=== PATIENT | female | born 1975 | race Caucasian/White ===

== ENCOUNTER 2023-08-14 20:20 | Emergency (ER) | payer OTHER, SELFPAY ==
[2023-08-14 20:22] VITALS: BP 169/92
--- NOTE | 2023-08-14 20:56 | ED.GENMED ---
History of Present Illness
<Liset Cardenas PA-C - Last Filed: 08/15/23 00:08>
General
Chief Complaint: Skin Surface Trauma
Source: patient
Exam Limitations: none
Time Seen by Provider: 08/14/23 20:48
Nursing documentation reviewed up to this point in time: agreed with
Travel History
Have you had any contact with someone who has COVID-19?: No
Do you have any symptoms of coronavirus? Fever > 100 degrees, chills, cough, shortness of breath, sore throat, loss of taste or smell, muscle aches, or headache?: No
History of Present Illness
History of Present Illness:
Patient is a 48-year-old female presenting for evaluation of right index finger laceration. 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
right index finger. She denies any numbness or tingling of right index finger. She did clean wound with soap and water immediately following laceration. They attempted to stop bleeding with direct compression but bleeding persisted. She came
down to the emergency department for further evaluation.
Patient is not on any blood thinners. Patient had tetanus booster in 2019.
Phy Exam
<Liset Cardenas PA-C - Last Filed: 08/15/23 00:08>
Physical Exam
Physical Exam:
Vitals: Patient's vital signs are stable
General: Patient is well appearing, no acute distress
Skin: Approximately 1 cm V-shaped laceration on tuft of right second digit; no evidence of tendon involvement. Full flexion and extension against resistance at the DIP, PIP, MCP joints; no sensory deficit; right upper extremity neurovascularly
intact
Head: Normocephalic, atraumatic
Eyes: Sclera nonicteric. EOMs intact. No nystagmus.
Throat: Protecting airway
Neck: Normal ROM, no cervical spine tenderness, no meningismus
Cardiac: Regular rate and rhythm, no murmurs.
Pulm: Normal respiratory effort, no wheezes, rales, rhonchi heard on exam.
Abdomen: No abdominal tenderness.
Extremities: 1 cm laceration of right second digit as described above. no evidence of cyanosis or edema
Neuro: AAOx3. CN II-XII intact. No focal neurologic deficits.
Psychiatric: Normal affect.
Course
<Liset Cardenas PA-C - Last Filed: 08/15/23 00:08>
Vital Signs
Initial and Last Documented VS:
Initial Vital Signs
Temp Pulse Resp BP Pulse Ox
98.6 F 93 16 169/92 99
08/14/23 20:22 08/14/23 20:22 08/14/23 20:22 08/14/23 20:22 08/14/23 20:22
Last Documented Vital Signs
Temp Pulse Resp BP Pulse Ox
98.6 F 75 20 128/55 99
08/14/23 20:22 08/14/23 21:59 08/14/23 21:59 08/14/23 21:59 08/14/23 21:59
<Kodi Merida MD - Last Filed: 08/14/23 21:44>
Vital Signs
Initial and Last Documented VS:
Initial Vital Signs
Temp Pulse Resp BP Pulse Ox
98.6 F 93 16 169/92 99
08/14/23 20:22 08/14/23 20:22 08/14/23 20:22 08/14/23 20:22 08/14/23 20:22
Last Documented Vital Signs
Temp Pulse Resp BP Pulse Ox
98.6 F 75 20 128/55 99
08/14/23 20:22 08/14/23 21:59 08/14/23 21:59 08/14/23 21:59 08/14/23 21:59
Procedures
<Liset Cardenas PA-C - Last Filed: 08/15/23 00:08>
Laceration Closure
Right Palmar Finger(s):
Status of Wound: clean
Size of Wound in cm: 1
Description of Wound Edges: sharp
Preparation: cleaned with saline
Anesthesia: 1% Lidocaine
Revision/Debridement: routine- no revision
Wound exploration: explored to base- no FB
Type of Closure: interrupted sutures
Skin Closure Material: 5-0 nylon
Number of sutures: 2
<iLset Cardenas PA-C - Last Filed: 08/15/23 00:08>
MDM/Problems Addressed
Differential Diagnosis Includes:
Laceration
MDM/Problems Addressed:
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 Patient cut right index finger on pill cutter while cleaning it about 30 minutes ago. No numbness or tingling. Patient's vital signs are
stable. Exam as above. There is an approximately 1 cm V-shaped laceration on right tuft of index finger. No evidence of tendon involvement. Patient's tetanus shot is up-to-date. Lengthy discussion with patient regarding glue vs Steri-Strips vs
sutures. Patient prefers sutures given frequent handwashing.
Laceration injected locally with 1% lidocaine. Irrigated thoroughly with saline. Sutured closed with 2 sutures. Skin well-approximated. Return precautions discussed. Instructed patient to have sutures removed in 7 to 10 days. She will
follow-up with occupational health on Thursday.
Chronic conditions affecting care:
N/A
Acute Exacerbation and/or Progression of Chronic Illness:
N/A
<Liset Cardenas PA-C - Last Filed: 08/15/23 00:08>
*Pulse Oximetry
Patient hypoxic: no
*EKG
Interpreted by ED Provider?: NA
*Digital Marketing Analyst Interpretation
Rate: Digital Marketing Analyst- N/A
*Critical Care Note
Total Time (30-74mins, 75-104mins- exclusive of procedures): Not Applicable
ED Attending Note
<Liset Cardenas PA-C - Last Filed: 08/15/23 00:08>
-
Portions of this chart may have been created with voice recognition software.� Occasional wrong word or��sound alike� substitutions may have occurred due to the inherent limitations of voice recognition software.
<Kodi Merida MD - Last Filed: 08/14/23 21:44>
ED Attending Note
Patient seen and examined by attending physician: Yes
I performed the substantive portion of visit, reviewed & personally made and approve the management plan that is documented in note by myself or JAKUB.: Yes
ED Attending Note:
48-year-old female cut her finger on a pill cutter. Tetanus up-to-date.
Approximately 1 cm slightly V-shaped laceration to the tuft of the right second digit. Motor or sensory neurovascular intact.
Lengthy discussion on Steri-Strips/glue versus sutures. Patient would prefer sutures.. Patient prefers sutures. Was sterilely sutured by our physician speech assistant
Discharge Plan
Departure
Patient Disposition: Home (Routine Discharge)
Date of Disposition: 08/14/23
Time of Disposition: 21:33
Patient with high blood pressure during this ER visit?: Yes
Condition: Good
Covid-19: Not Applicable
Discharge Problem:
Laceration
Instructions: Wound Care (DC), Laceration Repair With Stitches (DC), BLOOD PRESSURE
Prescriptions:
No Action
Control
1 tab PO DIRECTED
Activity Restrictions/Additional Instructions:
- Return to the emergency department with any numbness/tingling in right index finger, persistent bleeding, any signs of infection including high fevers, severe pain or swelling in right index finger, red streaking away from wound, pus draining from
wound, worsening in current symptoms, or any other concerns
-As discussed�you should keep wound clean and dry. You can remove bandage tomorrow, wash gently with soap and water. Continue to wash daily and keep covered until stitches are removed. You should have stitches removed in 7 to 10 days.
-You should follow-up with occupational health on Thursday for further evaluation/management.
Interventions
Interventions:
*Risk Screen - Suicide Last Done: 08/14/23 20:22
*General Assessment Last Done: 08/14/23 20:22
*Neglect/Abuse Screening Last Done: 08/14/23 21:57
*Nursing Disposition Last Done: 08/14/23 21:59
ED-Skin Assessment Last Done: 08/14/23 21:57
Discharge Date and Time
Discharge Date/Time: 08/14/23 22:00
Print Language: [id number]
[2023-08-14 21:59] VITALS: BP 128/55
== END 2023-08-14 22:00 | disposition home or self-care (01) ==
LOC: EMR 20:20
PROVIDERS: EMERGENCY PHYSICIAN Emergency Medicine; FAMILY PHYSICIAN Family Medicine
DX: S61.210A Laceration without foreign body of right index finger without damage to nail, initial encounter (principal); W26.8XXA Contact with other sharp object(s), not elsewhere classified, initial encounter; Y93.89 Activity, other specified; Y92.238 Other place in hospital as the place of occurrence of the external cause; Y99.0 Civilian activity done for income or pay; R03.0 Elevated blood-pressure reading, without diagnosis of hypertension
CPT/HCPCS: 99282; 12041

== ENCOUNTER → 2024-06-15 10:44 | Outpatient (REF) | payer OTHER, SELFPAY | LOC: HWWDC 10:44 | PROVIDERS: ATTENDING PHYSICIAN Family Medicine; REFERRING PHYSICIAN Obstetrics & Gynecology | DX: Z12.31 Encounter for screening mammogram for malignant neoplasm of breast (principal) | CPT/HCPCS: 77063; 77067 ==

== ENCOUNTER → 2024-06-28 09:23 | Outpatient (REF) | payer OTHER, SELFPAY | LOC: WDC 09:23 | PROVIDERS: ATTENDING PHYSICIAN Family Medicine | DX: R92.8 Other abnormal and inconclusive findings on diagnostic imaging of breast (principal) | CPT/HCPCS: 76642 ==

== ENCOUNTER → 2024-07-05 11:59 | Outpatient (REF) | payer OTHER, SELFPAY ==
--- NOTE | 2024-07-05 13:43 | OID.BR.INTR ---
[facility] Navigator - Initial
- -
Date of Contact: 07/05/24
Met with patient. Patient given written information on navigator services available at [facility]. Will follow up as needed per protocol.
== END ==
LOC: WDC 11:59
PROVIDERS: ATTENDING PHYSICIAN Family Medicine
DX: N63.22 Unspecified lump in the left breast, upper inner quadrant (principal)
CPT/HCPCS: 88305; 19083; A4648